=== PATIENT | female | born 1980 | race Caucasian/White ===

== ENCOUNTER 2019-05-09 20:25 | Emergency (ER) | payer MEDICAID, OTHER ==
[~2019-05-09] VITALS: Ht 162.6 cm; Wt 81.5 kg
[~2019-05-09 20:25] MED LIST: CIPR500T87 PO; HYDR-3240 PO; PHEN-418 PO; PROM25TA10 PO; TAMS-11 PO
[2019-05-09 20:27] VITALS: BP 147/97
== END 2019-05-09 21:59 | disposition home or self-care (01) ==
LOC: ED 21:46
DX: G89.11 Acute pain due to trauma (principal); R07.89 Other chest pain; F17.210 Nicotine dependence, cigarettes, uncomplicated; X58.XXXA Exposure to other specified factors, initial encounter; Y93.89 Activity, other specified; Y92.009 Unspecified place in unspecified non-institutional (private) residence as the place of occurrence of the external cause; Y99.8 Other external cause status
CPT/HCPCS: 99283